=== PATIENT | male | born 1990 | race Two or more races ===

== ENCOUNTER 2018-08-07 05:53 | Emergency (ER) | payer SELFPAY ==
[~2018-08-07] VITALS: Ht 180.3 cm; Wt 74.8 kg
--- NOTE | 2018-08-07 06:31 | NUR ---
PAULA Clifton FROM STREET, FOUND BREATHING 6-8 RPM, GIVEN NARCAN IN THE FIELD, ARRIVED AO ABLE TO VERBALIZE NEEDS, PLACED ON ER BED 13, CONT' TO MONITOR.
[2018-08-07 10:13] VITALS: BP 121/77
== END 2018-08-07 10:14 | disposition home or self-care (01) ==
LOC: ER 05:55
DX: T40.1X1A Poisoning by heroin, accidental (unintentional), initial encounter (principal); Z60.2 Problems related to living alone; Y92.89 Other specified places as the place of occurrence of the external cause

== ENCOUNTER 2019-08-17 09:40 | Emergency (ER) | payer OTHER, MEDICAID ==
[~2019-08-17] VITALS: Ht 188 cm; Wt 68.0 kg
[2019-08-17 09:49] VITALS: BP 120/81
--- NOTE | 2019-08-17 10:00 | NUR ---
SEEN AND EXAMINED BY .
--- NOTE | 2019-08-17 10:04 | NUR ---
Patient discharged to home in stable condition. Written and verbal after care instructions given. Patient verbalizes understanding of instruction.
== END 2019-08-17 10:04 ==
LOC: ER 09:42
DX: Z02.89 Encounter for other administrative examinations (principal); Z60.2 Problems related to living alone